=== PATIENT | male | born 1995 | race African-American/Black ===

== ENCOUNTER 2020-09-27 09:30 | Emergency (ER) | payer MEDICAID ==
[~2020-09-27] VITALS: Ht 177.8 cm; Wt 75.0 kg
[2020-09-27] MEDS ORDERED: AMOX-494 MT (11:30)
[2020-09-27 11:39] VITALS: BP 142/78
== END 2020-09-27 11:40 | disposition home or self-care (01) ==
LOC: ER 09:30
DX: J18.9 Pneumonia, unspecified organism (principal); F41.9 Anxiety disorder, unspecified; Z53.29 Procedure and treatment not carried out because of patient's decision for other reasons
CPT/HCPCS: 71046; 93005; 99283